=== PATIENT | male | born 1950 | race Caucasian/White ===

== ENCOUNTER → 2020-08-20 | Outpatient (CLI) | payer OTHER | LOC: CAT 08:07 | PROVIDERS: ATTEND Pediatrics | DX: J43.2 Centrilobular emphysema (principal); I25.10 Atherosclerotic heart disease of native coronary artery without angina pectoris; I70.0 Atherosclerosis of aorta; J98.4 Other disorders of lung; R91.1 Solitary pulmonary nodule ==

== ENCOUNTER → 2021-02-24 | Outpatient (CLI) | payer OTHER | LOC: CAT 08:58 | PROVIDERS: ATTEND Pediatrics | DX: R91.8 Other nonspecific abnormal finding of lung field (principal); I70.0 Atherosclerosis of aorta; M41.85 Other forms of scoliosis, thoracolumbar region ==